=== PATIENT | male | born 1955 | race Caucasian/White ===

== ENCOUNTER → 2019-02-27 09:41 | Outpatient (CLI) | payer OTHER, SELFPAY ==
[2019-02-27 10:49] LABS: Cholesterol 231 mg/dL (140-199); HDL Cholesterol 67 mg/dL (40-60); LDL Cholesterol Calculated 145 mg/dL (<100); Triglycerides 94 mg/dL (35-150)
[2019-02-27 11:20] LABS: Prostate Specific Antigen Scrn 0.322 ng/mL (0.1-4.0)
[2019-02-27 12:07] LABS: Vitamin D 25 Hydroxy (D3) 40.8 ng/mL (30.0-100.0)
== END ==
PROVIDERS: PCP Student in an Organized Health Care Education/Training Program; Visit Provider Student in an Organized Health Care Education/Training Program
DX: Z12.5 Encounter for screening for malignant neoplasm of prostate (principal); E78.2 Mixed hyperlipidemia; E55.9 Vitamin D deficiency, unspecified
CPT/HCPCS: 36415; 80061; 82306; G0103

== ENCOUNTER 2019-05-07 08:56 | Day surgery (SDC) | payer OTHER, SELFPAY ==
[2019-05-07] VITALS (8 sets, daily range): BP systolic 121–129; BP diastolic 81–87; PULSE 60–74; RESP 11–16; TEMP 35.8–36.7; O2SAT 92–100; BMI 23.9
--- NOTE | 2019-05-07 | PATH_ITS ---
[facility] Accession Number: [id number] . 01 Material submitted: . sigmoid colon - SIGMOID POLYP . 02 Diagnosis: Sigmoid Colon, Polyp, Biopsy: Hyperplastic polyp. MRV 05/08/2019 1327 Local . 02 Electronically signed: . Niki Reid MD, Pathologist NPI- [id number] . 01 Gross description: . SIGMOID POLYP: Received in formalin is 1 fragment(s) of butler, soft tissue measuring 0.5 x 0.2 x 0.1 cm which is entirely submitted and submitted entirely in 1 cassette(s) /[facility] 05/07/2019 1909 Local . 02 Pathologist provided ICD-10: K63.5 . 02 CPT . 973421 Performed at: 01 [facility] [address] [id number] MD Bebo Chanel MD Phone: [phone] Performed at: 02 [facility] [address] [place], [place] [id number] MD Niki Reid MD Phone: [phone]
--- NOTE | 2019-05-07 09:30 | PM.HP.1 ---
History of Present Illness History of Present Illness Date Patient Seen: 05/07/19 Time Patient Seen: 09:30 Chief complaint: [id number] Narrative: Screening Patient History Medical History (Updated 12/05/18 @ 21:52 by Carolynn Ren) Hyperlipidemia (Chronic) Surgical History (Updated 12/05/18 @ 21:52 by Carolynn Ren) History of splenectomy (~1963) History of vasectomy (~1992) Family History Mother Type 2 diabetes mellitus without complication Social History household members: spouse Smoking Status: Former smoker alcohol intake: current substance use type: does not use Family & Social History Social History: household members spouse Tobacco & Substance use: Smoking Status Former smoker alcohol intake current Meds Home Medications and Allergies Home Medications Medication Instructions Recorded Confirmed Type MULTIVITAMIN (One Daily 1 tab PO QDAY #0 01/24/12 12/06/18 History Multivitamin) Allergies Allergy/AdvReac Type Severity Reaction Status Date / Time Penicillins Allergy Unknown UNKNOWN Unverified 12/06/18 10:05 Exam Vital Signs (past 8 hours): - 05/07/19 09:07 Temperature 96.4 F L Pulse Rate 60 Respiratory Rate 16 Blood Pressure 121/81 Pulse Oximetry 100 Oxygen Delivery Method Room Air Narrative Exam Narrative: Oropharynx free of lesions Chest clear to auscultation percussion Cardiac exam reveals no S3 or murmur Assessment & Plan Assessment & Plan narrative: Need for screening colonoscopy. Last colonoscopy 10 years or more. Risks, benefits, alternatives have been explained.
--- NOTE | 2019-05-07 09:31 | PM.OP.ENDO ---
Operative Date/Time/Diagnoses Date of procedure: 05/07/19 Time of procedure: 09:31 Pre-op diagnosis: See indication and findings Procedure & Clinicians Study performed: After informed consent was obtained the patient was placed in left lateral decubitus position. The video colonoscope was introduced the rectum slowly advanced cecum. Preparation was good. On slow withdrawal mucosa was carefully examined. The scope was removed. The patient tolerated procedure well. Blood loss none Complications none Sedation Total sedation time 21 minutes Versed 6 mg fentanyl 100 mg IV titration Findings 1. Scattered diverticulosis in the sigmoid colon 2. 4 mm polyp in sigmoid colon Jumbo biopsy removed completely 3. Otherwise negative colonoscopy to cecum We will communicate the pathology results to Mr. Fuentes. If polyp is adenomatous he will need follow-up in 5 years otherwise follow-up in 10 years.
[2019-05-07] MEDS: fentaNYL 250 MCG/5 ML INJ IV (10:19)
[2019-05-07] MEDS: MIDAZOLAM 5 MG/5 ML VIAL IV (10:22)
--- NOTE | 2019-05-07 10:25 | SUR.OPER ---
SHORT PERIOD OF EXTERNAL ABDOMINAL PRESSURE
== END 2019-05-07 11:16 | disposition home or self-care (01) ==
LOC: ENDO 08:58
PROVIDERS: Family Provider Student in an Organized Health Care Education/Training Program; PCP Student in an Organized Health Care Education/Training Program; Visit Provider Internal Medicine Gastroenterology
PROC: 0DJD8ZZ Inspection of Lower Intestinal Tract, Via Natural or Artificial Opening Endoscopic (ICD-10-PCS; CPT 45378; principal; 2019-05-07 10:00)
DX: Z12.11 Encounter for screening for malignant neoplasm of colon (principal); E78.5 Hyperlipidemia, unspecified; K57.30 Diverticulosis of large intestine without perforation or abscess without bleeding; K63.5 Polyp of colon
CPT/HCPCS: 45380; J2250; J3010

== ENCOUNTER 2022-08-08 08:50 | Emergency (ER) | payer OTHER, SELFPAY ==
[2022-08-08 09:01] VITALS: BP 150/86; PULSE 61; RESP 15; TEMP 36.7; O2SAT 99; BMI 24.4
--- NOTE | 2022-08-08 09:08 | DI.RAD.S_ITS ---
PROCEDURE: XR FEMUR RT MIN 2V INDICATIONS: fall,knee and thigh pain TECHNIQUE: 4 views of the femur were acquired. COMPARISON: None. FINDINGS: Bones: No fractures or dislocations. No suspicious bony lesions. Soft tissues: No suspicious soft tissue calcifications or masses. IMPRESSION: No acute right femoral fracture or dislocation. Dictated by: Giovanni Ramírez M.D. on 08/08/2022 at 10:08 Approved by: Giovanni Ramírez M.D. on 08/08/2022 at 10:09
--- NOTE | 2022-08-08 09:08 | DI.RAD.S_ITS ---
PROCEDURE: XR KNEE RT 1TO2V INDICATIONS: fall,knee and thigh pain TECHNIQUE: 2 views of the knee were acquired. COMPARISON: None. FINDINGS: Bones: No fractures or dislocations. Mild medial femoral tibial compartment joint space narrowing and subchondral sclerosis is seen. No suspicious bony lesions. Soft tissues: No joint effusion. No suspicious soft tissue calcifications. IMPRESSION: No acute right knee fracture or dislocation. No significant joint effusion. Mild medial femoral tibial compartment osteoarthritis. Dictated by: Giovanni Ramírez M.D. on 08/08/2022 at 10:08 Approved by: Giovanni Ramírez M.D. on 08/08/2022 at 10:08
--- NOTE | 2022-08-08 09:20 | ED.FALL ---
HPI - Fall General Chief Complaint: Fall Stated Complaint: fall, rt leg injury & lower back Time Seen by Provider: 08/08/22 09:18 Source: patient Mode of arrival: Ambulatory History of Present Illness HPI Narrative: Patient here with . Complains of right thigh and right hip pain. Yesterday evening 7:00 p.m. he went to check under the house for any water leaks. He would say seat tripped and stumbled/slipped on something, his right foot went behind him and he landed on his buttock on top of his right foot. Complains of right hip pain radiating down to mid right thigh. Denies any ankle or direct knee pain. Unable to bear weight due to pain. Denies denies any other injuries no head neck chest abdomen back or spine pain/injury. Patient shoes and socks removed. Patient in shorts. Related Data Home Medications Medication Instructions Recorded Confirmed MULTIVITAMIN (One Daily 1 tab PO QDAY ##0 01/24/12 08/16/22 Multivitamin) acetaminophen 325 mg capsule 325 mg PO BEDTIME PRN 08/16/22 08/16/22 (Tylenol) Allergies Allergy/AdvReac Type Severity Reaction Status Date / Time hydrocodone Allergy Intermediate rash Verified 08/16/22 15:02 Penicillins Allergy Unknown UNKNOWN Verified 08/16/22 15:00 Review of Systems Review of Systems Narrative: GENERAL: negative chills, fatigue, malaise, fever, sweats. HEENT: negative sinus pain, ear pain, sore throat RESPIRATORY: negative dyspnea, cough CARDIOVASCULAR: negative chest pain, palpitations GASTROINTESTINAL: negative nausea, vomiting, abdominal pain : negative dysuria, frequency, hematuria MUSCULOSKELETAL: Positive muscle or bony pain SKIN: negative rash, skin lesions NEUROLOGIC: negative weakness, numbness ROS Unobtainable: All systems reviewed & are unremarkable except as noted in HPI and below Patient History Medical History Hyperlipidemia Ingrown left greater toenail Surgical History History of splenectomy (~1963) History of vasectomy (~1992) Family History Mother Type 2 diabetes mellitus without complication Social History household members: spouse Smoking Status: Former smoker alcohol intake: current substance use type: does not use Smoking Status: Former smoker alcohol intake frequency: holidays/special occasions only Substance Use Type: does not use Exam Narrative Exam Narrative: GENERAL: in no distress, not toxic not dyspneic HEAD: Normocephalic. Atraumatic, nontender scalp and face and skull. EYES: Pupils equal round No scleral icterus. ENT: Mucous membranes moist. NECK: Trachea midline. CARDIOVASCULAR: Regular rate and rhythm without murmurs RESPIRATORY: Clear to auscultation. Breath sounds equal bilaterally. No wheezes, rales, or rhonchi. GASTROINTESTINAL: Abdomen soft, non-tender EXTREMITIES: No gross deformities. Examination right lower extremity leg foot warm soft and pink. Strong pedal pulse light touch intact to foot and toes. Nontender ankle. No gross deformity of the ankle or knee. Very limited ability to actively or passively flex at the knee or hip due to pain at the proximal right thigh. Nontender direct right hip. No bruising of the thigh or calf. Calf nontender. Tib-fib nontender. No gross deformities NEURO: AOx4. SKIN: Warm and dry PSYCH: Not anxious, is cooperative Initial Vital Signs Initial Vital Signs: Vital Signs Temperature 98.0 F 08/08/22 09:01 Pulse Rate 61 08/08/22 09:01 Respiratory Rate 15 08/08/22 09:01 Blood Pressure 150/86 H 08/08/22 09:01 Pulse Oximetry 99 08/08/22 09:01 Oxygen Delivery Method 08/08/22 09:01 Course Course Course Narrative: No new issues during course of stay Orders Ordered: Discontinued Medications Hydrocodone Bitart/Acetaminophen (Hydrocodone/Acet 5/325 Tablet) 1 tab PO NOW ONE Stop: 08/08/22 09:34 Last Admin: 08/08/22 09:42 Dose: 1 tab Documented By: MEÑO Ondansetron HCl (Ondansetron 4 Mg Odt) 4 mg SL NOW ONE Stop: 08/08/22 09:34 Last Admin: 08/08/22 09:43 Dose: 4 mg Documented By: MEÑO Reevaluation(s) Reevaluation #1: Patient states pain is much better. I did review images results with him. He agrees with treatment plan with Ted wrap as he desires and then I have provided crutches. Referral for Orthopedics as well. Patient will need physical therapy referral by primary care. He agrees with this treatment plan. is driving. Time: 10:38 Vital Signs Vital signs: Vital Signs - 8 hr 08/08/22 09:01 08/08/22 10:13 Temperature 98.0 F Pulse Rate 61 64 Respiratory Rate 15 16 Blood Pressure 150/86 H Pulse Oximetry 99 98 Oxygen Delivery Method Room Air Room Air MDM - Fall Imaging Data CT pelvis without contrast: Radiologist's Impression: [address] [address] [address] Scan Report Signed Patient: Jorge Fuentes MR#: [id number] : 1955 Acct:[id number] Age/Sex: 66 / M Date of Service: 08/08/22 Loc: ED Accession Number: [id number] ?? Procedure: CT pelvis wo con Ordering Provider: Shaggy Jim MD PROCEDURE:? CT PEL WO CON ? INDICATIONS:? Trauma/fall/right side pain ? TECHNIQUE:? Noncontrast 3 mm axial sections acquired through the bony pelvis, with coronal and sagittal reformatting.? ? COMPARISON:? [facility], CR, XR FEMUR RT MIN 2V, 08/08/2022, 9:09. ? FINDINGS:? Image quality:? Excellent.? ? Bones:? No acute osseous fracture or dislocation.? Moderate joint space narrowing is seen at the posterior aspect of the hips bilaterally.? Mild degenerative changes are seen at the pubic symphysis, sacroiliac joints, and lumbar spine. ? Soft tissues:? Musculature surrounding the hips is normal in bulk.? No focal soft tissue edema or hematoma.? Aortic atherosclerotic calcifications are present.? A few diverticula are seen in the colon without signs of acute diverticulitis. ? IMPRESSION:? 1. No acute osseous fracture. 2. Moderate bilateral hip osteoarthrosis. 3. Degenerative changes are seen in the pubic symphysis, sacroiliac joints, and spine.? ? Approved by: Emmett Montalvo M.D. on 08/08/2022 at 10:18? CT right femur: Radiologist's Impression: [address] [address] [address] Scan Report Signed Patient: Jorge Fuentes MR#: [id number] : 1955 Acct:[id number] Age/Sex: 66 / M Date of Service: 08/08/22 Loc: ED Accession Number: [id number] ?? Procedure: CT LE RT wo con Ordering Provider: Shaggy Jim MD PROCEDURE:? CT LE RT WO CON ? INDICATIONS:? Attention femur/fall/injury/pain ? TECHNIQUE:? Noncontrast 3 mm axial sections acquired of the right femur, with coronal and sagittal reformats. ? COMPARISON:? [facility], CR, XR FEMUR RT MIN 2V, 08/08/2022, 9:09. ? FINDINGS:? Image quality:? Excellent.? ? Bones:? No acute osseous fracture or dislocation.? Moderate narrowing of the posterior right hip joint space. ? Soft tissues:? The musculature of the thigh is normal in bulk.? No focal subcutaneous soft tissue edema.? No significant knee or hip effusion.? Included soft tissues of the pelvis are within normal limits. ? IMPRESSION:? No acute osseous fracture. ? ? ? Approved by: Emmett Montalvo M.D. on 08/08/2022 at 10:15? Extremity x-ray #1: Radiologist's Impression: [place] [address] XRay Report Signed Patient: Jorge Fuentes MR#: [id number] : 1955 Acct:[id number] Age/Sex: 66 / M Date of Service: 08/08/22 Loc: ED Accession Number: [id number] ?? Procedure: XR knee RT 1to2V Ordering Provider: Shaggy Jim MD PROCEDURE:? XR KNEE RT 1TO2V ? INDICATIONS:? fall,knee and thigh pain ? TECHNIQUE:? 2 views of the knee were acquired.? ? COMPARISON:? None. ? FINDINGS:? ? Bones:? No fractures or dislocations.? Mild medial femoral tibial compartment joint space narrowing and subchondral sclerosis is seen.? No suspicious bony lesions.? ? Soft tissues:? No joint effusion.? No suspicious soft tissue calcifications.? ? ? IMPRESSION:? No acute right knee fracture or dislocation.? No significant joint effusion. ?Mild medial femoral tibial compartment osteoarthritis.? ? Dictated by: Giovanni Ramírez M.D. on 08/08/2022 at 10:08 ? ? Approved by: Giovanni Ramírez M.D. on 08/08/2022 at 10:08 ? Extremity x-ray #2: Radiologist's Impression: [address] [address] XRay Report Signed Patient: Jorge Fuentes MR#: [id number] : 1955 Acct:[id number] Age/Sex: 66 / M Date of Service: 08/08/22 Loc: ED Accession Number: [id number] ?? Procedure: XR femur RT min 2V Ordering Provider: Shaggy Jim MD PROCEDURE:? XR FEMUR RT MIN 2V ? INDICATIONS:? fall,knee and thigh pain ? TECHNIQUE:? 4 views of the femur were acquired.? ? COMPARISON:? None. ? FINDINGS:? ? Bones:? No fractures or dislocations.? No suspicious bony lesions.? ? Soft tissues:? No suspicious soft tissue calcifications or masses.? ? IMPRESSION:? No acute right femoral fracture or dislocation. ? ? Dictated by: Giovanni Ramírez M.D. on 08/08/2022 at 10:08 ? ? Approved by: Giovanni Ramírez M.D. on 08/08/2022 at 10:09 ? MDM Narrative Medical decision making narrative: Appropriate for discharge home. Exam and imaging are reassuring. Patient likely has right thigh strain/tendon/ligamentous/muscular strain. No surgical intervention indicated at this time. Neurovascularly intact otherwise. Return precautions reviewed with him and . They desire discharge home. Pain is controlled. Appropriate for short course of pain medication and to supplement with ibuprofen. Discharge Plan Departure Patient Disposition: Home Clinical Impression: Muscle strain of right thigh Instructions: DI for Muscle Strain Activity Restrictions/Additional Instructions: No driving or operating machinery until cleared by orthopedic services. No driving or operating machinery when taking prescribed pain medication. Please use crutches when up and walking. May toe-touch as tolerated when using crutches. Return if worse if any questions or concerns. Call provided orthopedic office today for office re-evaluation. See your family doctor as well and you may need referral for physical therapy. May supplement pain medication with [id number] ibuprofen. Prescriptions: No Action MULTIVITAMIN (One Daily Multivitamin) 1 tab PO QDAY Qty: 0 acetaminophen [Tylenol] 325 mg capsule 325 mg PO BEDTIME PRN Referrals: Prateek Kilpatrick MD [Primary Care Provider] - Angus Murillo MD [Physician] - Stand Alone Forms: Work Release Note Visit Report Forms: Patient Portal/API
--- NOTE | 2022-08-08 09:33 | DI.CT.S_ITS ---
PROCEDURE: CT LE RT WO CON INDICATIONS: Attention femur/fall/injury/pain TECHNIQUE: Noncontrast 3 mm axial sections acquired of the right femur, with coronal and sagittal reformats. COMPARISON: [facility], CR, XR FEMUR RT MIN 2V, 08/08/2022, 9:09. FINDINGS: Image quality: Excellent. Bones: No acute osseous fracture or dislocation. Moderate narrowing of the posterior right hip joint space. Soft tissues: The musculature of the thigh is normal in bulk. No focal subcutaneous soft tissue edema. No significant knee or hip effusion. Included soft tissues of the pelvis are within normal limits. IMPRESSION: No acute osseous fracture. Approved by: Emmett Montalvo M.D. on 08/08/2022 at 10:15
--- NOTE | 2022-08-08 09:33 | DI.CT.S_ITS ---
PROCEDURE: CT PEL WO CON INDICATIONS: Trauma/fall/right side pain TECHNIQUE: Noncontrast 3 mm axial sections acquired through the bony pelvis, with coronal and sagittal reformatting. COMPARISON: [facility], CR, XR FEMUR RT MIN 2V, 08/08/2022, 9:09. FINDINGS: Image quality: Excellent. Bones: No acute osseous fracture or dislocation. Moderate joint space narrowing is seen at the posterior aspect of the hips bilaterally. Mild degenerative changes are seen at the pubic symphysis, sacroiliac joints, and lumbar spine. Soft tissues: Musculature surrounding the hips is normal in bulk. No focal soft tissue edema or hematoma. Aortic atherosclerotic calcifications are present. A few diverticula are seen in the colon without signs of acute diverticulitis. IMPRESSION: 1. No acute osseous fracture. 2. Moderate bilateral hip osteoarthrosis. 3. Degenerative changes are seen in the pubic symphysis, sacroiliac joints, and spine. Approved by: Emmett Montalvo M.D. on 08/08/2022 at 10:18
[2022-08-08] MEDS: HYDROCODONE/ACET 5/325 TABLET 1 TAB PO (09:42)
[2022-08-08] MEDS: ONDANSETRON 4 MG ODT SL (09:43)
[2022-08-08 10:13] VITALS: PULSE 64; RESP 16; O2SAT 98
== END 2022-08-08 11:00 | disposition home or self-care (01) ==
PROVIDERS: Emergency Provider Emergency Medicine; Family Provider Student in an Organized Health Care Education/Training Program; PCP Student in an Organized Health Care Education/Training Program
DX: S76.911A Strain of unspecified muscles, fascia and tendons at thigh level, right thigh, initial encounter (principal); W01.0XXA Fall on same level from slipping, tripping and stumbling without subsequent striking against object, initial encounter
CPT/HCPCS: 72192; 73552; 73560; 73700; 99284

== ENCOUNTER → 2022-10-06 07:42 | Outpatient (CLI) | payer OTHER, SELFPAY ==
[2022-10-06 08:53] LABS: Add Manual Diff / Slide Review NO; Basophils Absolute Auto 100 /uL (0-100); Eosinophils Absolute Auto 200 /uL (0-450); Eosinophils Percent Auto 3.7 % (2-4); Hematocrit 44.7 % (41-53); Hemoglobin 14.6 g/dL (13.5-17.5); Lymphocytes Absolute Auto 2100 /uL (1100-4500); Lymphocytes Percent Auto 38.7 % (25-40); Mean Corpuscular HGB Conc 32.6 % (30-36); Mean Corpuscular Hemoglobin 30.3 PG (26-34); Mean Corpuscular Volume 92.8 fL (80-100); Monocytes Absolute Auto 500 /uL (0-900); Monocytes Percent Auto 9.2 % (3-14); Neutrophils Absolute Auto 2500 /uL (1500-7000); Neutrophils Percent Auto 47.4 % (50-75); Platelet Count 349 X10^3/uL (150-400); Red Blood Cell Count 4.81 X10^6/uL (4.5-5.9); Red Cell Distribution Width 14.5 % (11.6-14.8); White Blood Cell Count 5.3 X10^3/uL (4.5-11.0)
[2022-10-06 09:08] LABS: Alanine Aminotransferase 23 IU/L (<50); Albumin 4.1 g/dL (3.5-5.0); Albumin Globulin Ratio 1.5 (1.0-2.8); Alkaline Phosphatase 79 U/L (38-126); Aspartate Aminotransferase 25 IU/L (17-59); BUN Creatinine Ratio 18.5 (6-22); Blood Urea Nitrogen 15 mg/dL (9-20); Calcium 8.9 mg/dL (8.4-10.2); Carbon Dioxide 31 mmol/L (22-32); Chloride 99 mmol/L (98-107); Cholesterol 239 mg/dL (140-199); Estimated Glomerular Filt Rate > 60 mL/min (>60); Globulin 2.8 g/dL (1.7-4.1); Glucose 90 mg/dL (80-110); HDL Cholesterol 73 mg/dL (40-60); HEMOLYSIS < 15 (0-50); LDL Cholesterol Calculated 152 mg/dL (<100); Potassium 4.5 mmol/L (3.4-5.1); Sodium 135 mmol/L (137-145); Total Protein 6.9 g/dL (6.3-8.2); Triglycerides 69 mg/dL (35-150)
[2022-10-06 09:39] LABS: Free T3, Triiodothyronine Free 4.24 pg/mL (2.77-5.27); Thyroid Stimulating Hormone 1.19 uIU/mL (0.47-4.68)
[2022-10-06 09:47] LABS: Prostate Specific Antigen 0.297 ng/mL (0.10-4.00)
[2022-10-06 10:37] LABS: Creatinine Urine Random 40.1 mg/dL
[2022-10-06 10:43] LABS: Microalbumin Urine Random < 0.6 mg/dL (0-1.6)
[2022-10-09 17:11] LABS: Hep C Virus Ab w/Reflex Quant NEGATIVE s/c (NEGATIVE)
== END ==
PROVIDERS: Family Provider Student in an Organized Health Care Education/Training Program; PCP Nurse Practitioner; Referring Provider Nurse Practitioner; Visit Provider Nurse Practitioner
DX: E78.2 Mixed hyperlipidemia (principal); R53.82 Chronic fatigue, unspecified; Z79.899 Other long term (current) drug therapy; Z12.5 Encounter for screening for malignant neoplasm of prostate; R53.83 Other fatigue; Z11.59 Encounter for screening for other viral diseases
CPT/HCPCS: 36415; 80053; 80061; 82043; 82570; 84153; 84439; 84443; 84481; 85025; 86803

== ENCOUNTER → 2022-10-13 07:23 | Outpatient (CLI) | payer OTHER, SELFPAY ==
[2022-10-16 15:43] LABS: Fecal Immunochemical Test Negative (Negative)
== END ==
PROVIDERS: Family Provider Student in an Organized Health Care Education/Training Program; PCP Nurse Practitioner; Referring Provider Nurse Practitioner; Visit Provider Nurse Practitioner
DX: Z12.11 Encounter for screening for malignant neoplasm of colon (principal)
CPT/HCPCS: 82274

== ENCOUNTER → 2023-09-04 06:53 | Outpatient (CLI) | payer OTHER, SELFPAY ==
[2023-09-04 08:44] LABS: Alanine Aminotransferase 22 IU/L (<50); Albumin 3.9 g/dL (3.5-5.0); Albumin Globulin Ratio 1.3 (1.0-2.8); Alkaline Phosphatase 74 U/L (38-126); Aspartate Aminotransferase 27 IU/L (17-59); BUN Creatinine Ratio 23.4 (6-22); Bilirubin Total 0.7 mg/dL (0.2-1.3); Blood Urea Nitrogen 18 mg/dL (9-20); Calcium 9.2 mg/dL (8.4-10.2); Carbon Dioxide 29 mmol/L (22-32); Chloride 102 mmol/L (98-107); Cholesterol 210 mg/dL (140-199); Estimated Glomerular Filt Rate > 60 mL/min (>60); Glucose 93 mg/dL (80-110); HDL Cholesterol 57 mg/dL (40-60); HEMOLYSIS < 15 (0-50); LDL Cholesterol Calculated 140 mg/dL (<100); Potassium 4.4 mmol/L (3.4-5.1); Sodium 138 mmol/L (137-145); Total Protein 6.9 g/dL (6.3-8.2); Triglycerides 67 mg/dL (35-150)
[2023-09-04 10:25] LABS: Creatinine Urine Random 115.8 mg/dL
[2023-09-04 10:41] LABS: Microalbumin Urine Random < 0.6 mg/dL (0-1.6)
[2023-09-04 11:02] LABS: Free T3, Triiodothyronine Free 4.06 pg/mL (2.77-5.27); Free T4, Direct Thyroxine 0.91 ng/dL (0.78-2.19)
[2023-09-04 11:15] LABS: Thyroid Stimulating Hormone 1.34 uIU/mL (0.47-4.68)
== END ==
PROVIDERS: Family Provider Student in an Organized Health Care Education/Training Program; PCP Nurse Practitioner; Referring Provider Nurse Practitioner; Visit Provider Nurse Practitioner
DX: I10 Essential (primary) hypertension (principal); E78.2 Mixed hyperlipidemia; R53.82 Chronic fatigue, unspecified; Z79.899 Other long term (current) drug therapy
CPT/HCPCS: 36415; 80053; 80061; 82043; 82570; 84439; 84443; 84481

== ENCOUNTER → 2023-12-10 06:55 | Outpatient (CLI) | payer OTHER, SELFPAY ==
[2023-12-10 08:20] LABS: Alanine Aminotransferase 25 IU/L (<50); Albumin 4.1 g/dL (3.5-5.0); Albumin Globulin Ratio 1.6 (1.0-2.8); Alkaline Phosphatase 67 U/L (38-126); Aspartate Aminotransferase 25 IU/L (17-59); BUN Creatinine Ratio 23.9 (6-22); Bilirubin Total 0.8 mg/dL (0.2-1.3); Blood Urea Nitrogen 16 mg/dL (9-20); Calcium 9.2 mg/dL (8.4-10.2); Carbon Dioxide 32 mmol/L (22-32); Chloride 106 mmol/L (98-107); Cholesterol 160 mg/dL (140-199); Estimated Glomerular Filt Rate > 60 mL/min (>60); Globulin 2.6 g/dL (1.7-4.1); Glucose 90 mg/dL (80-110); HDL Cholesterol 75 mg/dL (40-60); HEMOLYSIS < 15 (0-50); LDL Cholesterol Calculated 74 mg/dL (<100); Potassium 4.8 mmol/L (3.4-5.1); Sodium 139 mmol/L (137-145); Total Protein 6.7 g/dL (6.3-8.2); Triglycerides 56 mg/dL (35-150)
== END ==
PROVIDERS: Family Provider Student in an Organized Health Care Education/Training Program; PCP Nurse Practitioner; Referring Provider Nurse Practitioner; Visit Provider Nurse Practitioner
DX: E78.2 Mixed hyperlipidemia (principal); Z79.899 Other long term (current) drug therapy
CPT/HCPCS: 36415; 80053; 80061

== ENCOUNTER → 2025-01-14 06:48 | Outpatient (CLI) | payer OTHER, SELFPAY ==
[2025-01-14 07:30] LABS: Add Manual Diff / Slide Review NO; Basophils Absolute Auto 100 /uL (0-100); Basophils Percent Auto 1.1 % (0-2); Eosinophils Absolute Auto 300 /uL (0-450); Eosinophils Percent Auto 3.9 % (2-4); Hematocrit 41.6 % (41-53); Lymphocytes Absolute Auto 1800 /uL (1100-4500); Lymphocytes Percent Auto 24.8 % (25-40); Mean Corpuscular HGB Conc 33.7 % (30-36); Mean Corpuscular Hemoglobin 31.2 PG (26-34); Mean Corpuscular Volume 92.6 fL (80-100); Monocytes Absolute Auto 600 /uL (0-900); Monocytes Percent Auto 7.9 % (3-14); Neutrophils Absolute Auto 4500 /uL (1500-7000); Neutrophils Percent Auto 62.3 % (50-75); Platelet Count 275 X10^3/uL (150-400); Red Cell Distribution Width 14.6 % (11.6-14.8); White Blood Cell Count 7.2 X10^3/uL (4.5-11.0)
[2025-01-14 08:07] LABS: Albumin 4.3 g/dL (3.5-5.0); Alkaline Phosphatase 68 U/L (38-126); BUN Creatinine Ratio 19.7 (6-22); Bilirubin Total 0.8 mg/dL (0.2-1.3); Blood Urea Nitrogen 15 mg/dL (9-20); Calcium 9.2 mg/dL (8.4-10.2); Carbon Dioxide 31 mmol/L (22-32); Chloride 103 mmol/L (98-107); Estimated Glomerular Filt Rate > 60 mL/min (>60); Globulin 2.2 g/dL (1.7-4.1); Glucose 94 mg/dL (70-99); HDL Cholesterol 75 mg/dL (40-60); HEMOLYSIS < 15 (0-50); Potassium 4.7 mmol/L (3.4-5.1); Sodium 138 mmol/L (137-145); Total Protein 6.5 g/dL (6.3-8.2)
[2025-01-14 08:08] LABS: Alanine Aminotransferase 27 IU/L (<50); Aspartate Aminotransferase 29 IU/L (17-59); Cholesterol 157 mg/dL (140-199); LDL Cholesterol Calculated 73 mg/dL (<100); Triglycerides 47 mg/dL (35-150)
== END ==
PROVIDERS: PCP Nurse Practitioner Family; Referring Provider Nurse Practitioner Family; Visit Provider Nurse Practitioner Family
DX: I10 Essential (primary) hypertension (principal); E78.2 Mixed hyperlipidemia
CPT/HCPCS: 36415; 80053; 80061; 85025